=== PATIENT | male | born 1950 | race Caucasian/White ===

== ENCOUNTER 2020-06-07 22:10 | Inpatient (IN) | payer MEDICARE, OTHER ==
[~2020-06-07] VITALS: Ht 180.3 cm; Wt 119.3 kg
[2020-06-07 11:40] VITALS: BP 140/90
--- NOTE | 2020-06-07 23:40 | NUR ---
Patient arrived via EMS air flight accompanied by 2 EMS workers. Patient denies any pain or discomfort. Patient transferred to bed with assist of staff and placed on a continuous pulse ox and telemetry box.
[2020-06-08] VITALS (7 sets, daily range): BP systolic 121–138; BP diastolic 69–88
--- NOTE | 2020-06-08 02:31 | PCM.HP ---
HISTORY & PHYSICAL HISTORY & PHYSICAL DATE: June 08, 2020 Patient is admitted to the Covid floor as an inpatient ADMITTING DIAGNOSES: Worsening severe COVID-19 positive test (U07.1, COVID-19) with Acute Pneumonia (J12.89, Other viral pneumonia) (If respiratory failure or sepsis present, add as separate assessment) With acute hypoxic respiratory failure, rapid atrial fibrillation, elevated troponin, pulmonary edema CHIEF COMPLAINT: Worsening breathing HISTORY OF PRESENT ILLNESS: 69-year-old gentleman who was having worsening URI symptoms and breathing issues approximately 10 days ago. He went to his primary care physician's office and did not 5 days ago for his worsening breathing. Covid test was done at that time and it was reported as positive to PCR. He denies any fevers or headaches or change in smell or taste during this time. His primary complaint was worsening shortness of breath and chest heaviness and cough. He described the cough as a nonproductive cough. He denies any abdominal symptoms with no diarrhea and no dysuria as well. He does report some muscle aches however they are not severe. There have been no sick contacts around him. He denies any recent traveling. He reports going to see his cardio logist in [place] approximately a month ago and reports no issues from that visit. He denies any chest pain at this point. PAST MEDICAL HISTORY: Chronic atrial fibrillation, hypertension, DJD, sleep apnea, history of thyroid nodule PAST SURGICAL HISTORY: Bilateral hip replacement, right knee arthroscopy, right shoulder surgery, hemorrhoidectomy, colonoscopy ALLERGIES: No known drug allergies MEDICATIONS: I have reviewed his home medication list SOCIAL HISTORY: No tobacco, no alcohol, no drugs FAMILY HISTORY: Noncontributory for this admission PHYSICAL EXAMINATION: VITAL SIGNS: Temperature 99.4, pulse 104, respirations 20, blood pressure 136/87, he is on a nonrebreather mask currently with O2 sat of 94% HEENT: Oropharynx is clear, there is no significant nasal congestion, no maxillary sinus tenderness NECK: Supple, JVD was approximately 3 cm HEART: S1 and S2 audible, heart rate on my exam was around 90 and it was irregular, soft 3 out of 6 systolic murmur radiating to the axilla LUNGS: He had bilateral crackles with diminished breath sounds at the bases ABDOMEN: Abdomen is protuberant with good bowel sounds, soft, no rebound, no masses EXTREMITIES: No pitting edema noted, no cyanosis, good distal pulses noted LABORATORY DATA: Labs were done in the [place] ER: Sodium 131, potassium 3.9, chloride 96, bicarb 21, BUN 11, creatinine 0.84, total bilirubin 1.1, AST 69, albumin 3, lactic acid level 4.6, troponin 0 0.12, CK 144, CK-MB 5.7, BNP 311, WBC 10.6, hemoglobin 12.8, platelet count 260, PT 23, INR 2.43, PTT 31.7, D- dimer 3150, UA was clear, strep screen was negative, influenza AMB were negative, ABG on a nonrebreather with a pH 7.53/PCO2 24/PO2 64/bicarb 20 Chest x-ray was done at the ER with worsening bilateral peripheral groundglass infiltrates and no pleural effusion; prominent cardiac silhouette noted with increasing pulmonary vasculature bilaterally ASSESSMENT: We had this gentleman with coronavirus infection and pneumonia with early sepsis and acute hypoxic respiratory failure and also with acute uncompensated heart failure with rapid A. fib PLAN: Patient was in obvious respiratory distress when he came into the ER with significant pulmonary edema. He diuresed 5000 cc of urine after Lasix was given. He was given IV antibiotics with remdesivir and Decadron in the ER and admit. At this time giving him more fluids would be detrimental to his heart status since he did come in with rapid A. fib with pulmonary edema. I will go ahead and continue his coronavirus 19 infection medications and also start him on empiric IV antibiotics with oxygen. I will get an echo on him and follow his cardiac enzymes. We may need cardiology consultation. Clinically he reports to me that he is feeling a little bit better after the diuresis at this time and that his breathing is less labored. I will put him on a monitor and control his heart rate with his underlying chronic A. fib. CHILO RIVERA MD Jun 08, 2020 02:31
--- NOTE | 2020-06-08 08:04 | PCM.EKG ---
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
[2020-06-08] MEDS: DECADRON IV SCH (08:20)
[2020-06-08] MEDS ORDERED: FURO-81 PO (14:18)
[2020-06-08] MEDS ORDERED: METO50TA6 PO (14:18)
[2020-06-08] MEDS ORDERED: RIVA20TA PO (14:18)
[2020-06-08] MEDS ORDERED: LOSA100T14 PO (14:18)
--- NOTE | 2020-06-08 16:45 | DIREP ---
PROCEDURE:CT CHEST WITH CONTRAST COMPARISON:[facility], CR, XRAY CHEST 2 VWS, 06/03/2020, 03:[address] [facility], CR, XRAY CHEST 2 VWS, 06/07/2020, 06:07 PM. INDICATIONS:SOB, covid pneumonia, CHF TECHNIQUE:Helical CT images of the chest were obtained following the administration of IV contrast material. Axial, sagittal, and coronal images are provided. FINDINGS: LUNGS/PLEURA: Diffuse scattered ground-glass opacities throughout the right upper lobe and bilateral lower lobes with additional smaller foci of rounded ground-glass opacity at the periphery of the posterior left upper lobe and posterior lateral right middle lobe. No pleural effusion or pneumothorax. MEDIASTINUM/DARRYL: Multiple mildly prominent bilateral paratracheal and subcarinal lymph nodes, which are likely reactive to the above process. No bulky mediastinal or hilar adenopathy. CARDIAC: Heart size is within normal limits. Three-vessel coronary artery calcifications, most prominent in the LAD and RCA. No pericardial effusion. THORACIC AORTA: Scattered calcified plaque. No aneurysm. CHEST WALL: Unremarkable. No axillary adenopathy. LIMITED ABDOMEN: Vascular calcifications. Otherwise unremarkable. BONES: Right shoulder hemiarthroplasty. [id number] degenerative changes involving the thoracic spine. No acute abnormality or suspicious osseous lesion. OTHER: Negative. CONCLUSION: 1. Scattered ground-glass opacities throughout both lungs, most prominent in the right upper lobe and bilateral lower lobes. These imaging features are commonly reported in COVID-19 pneumonia. Other processes such as influenza pneumonia and organizing pneumonia (i.e. Drug toxicity and connective tissue disease) can have a similar appearance. 2. Three-vessel coronary artery calcifications, most prominent in the LAD and RCA. Heart size is normal. 3. Additional findings, as above. Dictated by: Tk Marie MD on 06/08/2020 at 04:38 PM
--- NOTE | 2020-06-08 17:21 | PRM.PN ---
Subjective Subjective Date: Jun 08, 2020 Time: 17:00 Subjective Pt reports feeling a bit better today; coughing is improved VTE VTE Risk Total Score: 3 VTE Risk Score VTE Risk: Score 0-1 = Low Risk (Aggressive mobilization; early ambulation; no VTE prophylaxis required) Score 2: Moderate Risk (Intermittent/Pneumatic Compression Device OR Lovenox/Heparin/Coumadin) Score 3-4: High Risk (Intermittent/Pneumatic Compression Device AND Lovenox/Heparin/Coumadin) Score > or =5: Highest Risk (Intermittent/Pneumatic Compression Device AND Lovenox/Heparin/Coumadin) Antico:Hep/LMWH/Coum/Xarelto: Yes Mechanical device ordered: No Review of Systems Constitutional: Fever, Malaise; No: Chills, Sweats, Weakness Eyes: No: Pain, Vision change, Conjunctivae inflammation ENT: No: Ear pain, Ear discharge, Nose pain Respiratory: Cough, Shortness of breath Cardiovascular: No: Chest Pain, Palpitations, Orthopnea, Paroxysmal Noc. Dyspnea Gastrointestinal: No: Nausea, Vomiting, Abdominal Pain, Diarrhea Genitourinary: No Dysuria, No Hematuria Musculoskeletal: No: neck pain, shoulder pain, arm pain Skin: No: Lesions, Jaundice, Bruising Neurological: No: Incoordination, Change in speech, Confusion, Seizures Allergies: Coded Allergies: No Known Allergies (Unverified , 06/08/20) Scheduled Furosemide (Lasix), 1 TAB PO QD, (Reported) Losartan Potassium (Losartan Potassium), 1 TAB PO DAILY, (Reported) Metoprolol Tartrate 50MG (Lopresser 50MG), 1 TAB PO DAILY24, (Reported) Rivaroxaban (Xarelto), 1 TAB PO HS, (Reported) Objective Vitals and I/O Vital Sign - Last 24 Hours 06/08/20 06/08/20 06/08/20 06/08/20 01:14 01:32 09:31 12:01 Temp 99.4 98.2 97.5 Pulse 104 100 92 Resp 22 28 24 B/P (MAP) 136/87 (103) 133/86 (102) 126/69 (88) O2 Delivery Nasal Cannula Nasal Canula Nasal Canula Venti Mask Non-Rebreather Non-Rebreather O2 Flow Rate 2.00 2.00 10.00 10.00 06/08/20 15:55 Temp 97.6 Pulse 114 Resp 26 B/P (MAP) 131/77 (95) O2 Delivery Venti Mask Non-Rebreather O2 Flow Rate 10.00 Intake and Output 06/08/20 07:00 Output Total 400 ml Balance -400 ml General: Alert, Oriented X3, Cooperative, No acute distress HEENT: Atraumatic, PERRLA, EOMI Neck: Supple, No thyromegaly Lungs: Other (crackles B with decreased BS at B bases) Heart: Normal S1, Normal S2, Other (slight tachy) Abdomen: Normal bowel sounds, Soft, No tenderness Extremities: No clubbing, No cyanosis Skin: No rashes Neuro: Normal speech Psych/Mental Status: Mental status NL, Mood NL All Results(Lab/Rad) Laboratory Tests Test 06/08/20 02:25 06/08/20 10:00 Total Creatine Kinase 161 U/L Creatine Kinase MB 1.5 ng/mL Troponin I < 0.02 ng/mL < 0.02 ng/mL Current Medications Medications (Trade) Dose Ordered Sig/Essence Route PRN Reason Start Time Stop Time Status Last Admin Dose Admin Benzonatate (Tessalon Perle) 100 mg TID PRN PO COUGH 06/08/20 02:30 07/08/20 02:29 Remdesivir 100 mg/ Sodium Chloride 120 ml @ 111.111 mls/hr Q24HRS IV 06/08/20 21:00 07/08/20 20:59 Ceftriaxone Sodium 2000 mg/ Sodium Chloride 100 ml @ 200 mls/hr Q24HRS IV 06/08/20 18:00 07/08/20 17:59 Azithromycin 500 mg/Sodium Chloride 250 ml @ 175 mls/hr Q24HRS IV 06/08/20 18:00 07/08/20 17:59 Course Sepsis Screening Results: Posi: NEGATIVE Sepsis Qualifier/Stage: NO DEFINITE RISK Vitals & review Data Vital Sign - Last 24 Hours 06/08/20 06/08/20 06/08/20 06/08/20 01:14 01:32 09:31 12:01 Temp 99.4 98.2 97.5 Pulse 104 100 92 Resp 22 28 24 B/P (MAP) 136/87 (103) 133/86 (102) 126/69 (88) O2 Delivery Nasal Cannula Nasal Canula Nasal Canula Venti Mask Non-Rebreather Non-Rebreather O2 Flow Rate 2.00 2.00 10.00 10.00 06/08/20 15:55 Temp 97.6 Pulse 114 Resp 26 B/P (MAP) 131/77 (95) O2 Delivery Venti Mask Non-Rebreather O2 Flow Rate 10.00 Intake and Output 06/08/20 07:00 Output Total 400 ml Balance -400 ml Laboratory Tests Test 06/08/20 02:25 06/08/20 10:00 Total Creatine Kinase 161 U/L Creatine Kinase MB 1.5 ng/mL Troponin I < 0.02 ng/mL < 0.02 ng/mL Current Medications Medications (Trade) Dose Ordered Sig/Essence PRN Reason Start Time Stop Time Status Last Admin Azithromycin 500 mg/Sodium Chloride 250 ml @ 175 mls/hr Q24HRS 06/08/20 18:00 07/08/20 17:59 Benzonatate (Tessalon Perle) 100 mg TID PRN COUGH 06/08/20 02:30 07/08/20 02:29 Ceftriaxone Sodium 2000 mg/ Sodium Chloride 100 ml @ 200 mls/hr Q24HRS 06/08/20 18:00 07/08/20 17:59 Remdesivir 100 mg/ Sodium Chloride 120 ml @ 111.111 mls/hr Q24HRS 06/08/20 21:00 07/08/20 20:59 LEVEL 1 SEPSIS INFECTION CRITE: ABX Therapy LEVEL 2-SIRS (LIST ALL THAT AP: RR>20/min Oxygen Flow Rate: 10.00 Assessment/Plan Assessment/Plan Assessment/Plan 69 yo male with COVID pneumonia, acute hypoxic resp failure on venti mask now, chronic afib with CHF - currency exchange specialist to eliquis and hold his coumadin - ECHO pending - on remdesivir, decadron, O2, plasma transfusion pending - rate control his afib CHILO RIVERA MD Jun 08, 2020 17:21
[2020-06-08] MEDS: ROCEPHIN 2,000 MG in NS 100ML 100 ML IV SCH (17:26)
[2020-06-08] MEDS ORDERED: LOPRESSOR PO SCH (17:30)
[2020-06-08] MEDS: ZITHROMAX 500 MG in NS 250ML 250 ML IV SCH (18:00)
[2020-06-08] MEDS: REMDESIVIR (EUA) 100 MG in NS 100ML 100 ML IV SCH (21:00)
[2020-06-08] MEDS: VITAMIN C PO SCH (21:00)
[2020-06-08] MEDS: ELIQUIS PO SCH (21:00)
[2020-06-08] MEDS: MELATONIN PO SCH (21:00)
[2020-06-08] MEDS: LIPITOR PO SCH (21:00)
[2020-06-08] MEDS: COMBIVENT RESPIMAT 20-100 MCG IH SCH (21:35)
[2020-06-08] MEDS ORDERED: NS 250ML 250 ML IV ONE (22:47)
[2020-06-09] VITALS (8 sets, daily range): BP systolic 112–158; BP diastolic 70–98
[2020-06-09] MEDS ORDERED: ZINC SULFATE ONE (07:34)
[2020-06-09] MEDS ORDERED: VITAMIN E ONE (07:34)
[2020-06-09] MEDS ORDERED: VITAMIN D ONE (07:35)
[2020-06-09] MEDS ORDERED: COZAAR ONE (07:49)
[2020-06-09] MEDS: COMBIVENT RESPIMAT 20-100 MCG IH SCH ×3 (09:00→21:15)
[2020-06-09] MEDS: DECADRON IV SCH (09:00)
[2020-06-09] MEDS: ELIQUIS PO SCH ×2 (09:07→21:00)
[2020-06-09] MEDS: VITAMIN D PO SCH (09:07)
[2020-06-09] MEDS: VITAMIN E PO SCH (09:07)
[2020-06-09] MEDS: COZAAR PO SCH (09:07)
[2020-06-09] MEDS: VITAMIN C PO SCH ×2 (09:07→21:00)
[2020-06-09] MEDS: ZINC SULFATE PO SCH (09:07)
--- NOTE | 2020-06-09 12:55 | PRM.PN ---
Subjective Subjective Date: Jun 09, 2020 Time: 12:35 Subjective Pt reports breathing ok; his coughing is his main complaint; eating good; denies any CP or abd pains VTE VTE Risk Total Score: 3 VTE Risk Score VTE Risk: Score 0-1 = Low Risk (Aggressive mobilization; early ambulation; no VTE prophylaxis required) Score 2: Moderate Risk (Intermittent/Pneumatic Compression Device OR Lovenox/Heparin/Coumadin) Score 3-4: High Risk (Intermittent/Pneumatic Compression Device AND Lovenox/Heparin/Coumadin) Score > or =5: Highest Risk (Intermittent/Pneumatic Compression Device AND Lovenox/Heparin/Coumadin) Antico:Hep/LMWH/Coum/Xarelto: Yes Mechanical device ordered: No Review of Systems Constitutional: No: Fever, Chills, Sweats, Weakness, Malaise Eyes: No: Pain, Vision change, Conjunctivae inflammation ENT: No: Ear pain, Ear discharge, Nose pain Respiratory: Cough, SOB with excertion; No: Shortness of breath Cardiovascular: No: Chest Pain, Palpitations, Orthopnea, Paroxysmal Noc. Dyspnea Gastrointestinal: No: Nausea, Vomiting, Abdominal Pain, Diarrhea Genitourinary: No Dysuria, No Hematuria Musculoskeletal: No: neck pain, shoulder pain, arm pain Skin: No: Lesions, Jaundice, Bruising Neurological: No: Incoordination, Change in speech, Confusion, Seizures Allergies: Coded Allergies: No Known Allergies (Unverified , 06/08/20) Scheduled Furosemide (Lasix), 1 TAB PO QD, (Reported) Losartan Potassium (Losartan Potassium), 1 TAB PO DAILY, (Reported) Metoprolol Tartrate 50MG (Lopresser 50MG), 1 TAB PO DAILY24, (Reported) Rivaroxaban (Xarelto), 1 TAB PO HS, (Reported) Objective Vitals and I/O Vital Sign - Last 24 Hours 06/08/20 06/08/20 06/08/20 06/08/20 15:55 19:06 19:16 21:34 Temp 97.6 97.5 Pulse 114 108 105 Resp 26 18 20 24 B/P (MAP) 131/77 (95) 138/88 (105) Pulse Ox 91 90 O2 Delivery Venti Mask Venturi Mask Venti Mask Non-Rebreather O2 Flow Rate 10.00 15.00 10.00 FiO2 50 06/08/20 06/08/20 06/08/20 06/08/20 21:36 21:38 23:19 23:36 Temp 97.6 97.9 Pulse 90 90 76 72 Resp B/P (MAP) 135/76 121/80 Pulse Ox 94 94 O2 Delivery Venturi Mask O2 Flow Rate 15.00 FiO2 50 06/09/20 06/09/20 06/09/20 06/09/20 00:43 00:51 01:35 05:13 Temp 97.9 97.9 97.6 Pulse 72 81 72 Resp B/P (MAP) 138/88 (105) 112/71 (85) 129/89 Pulse Ox 94 94 O2 Delivery Venti Mask Venti Mask Venturi Mask O2 Flow Rate 10.00 10.00 10.00 FiO2 92 06/09/20 06/09/20 06/09/20 06/09/20 05:18 08:15 08:20 08:25 Temp 97.7 Pulse 73 103 103 103 Resp 30 26 B/P (MAP) 158/98 (118) 151/97 (115) Pulse Ox 94 90 90 92 O2 Delivery Venti Mask Venturi Mask O2 Flow Rate 10.00 FiO2 50 06/09/20 09:07 B/P (MAP) 158/98 Intake and Output 06/09/20 07:00 Intake Total 1686 ml Output Total 1050 ml Balance 636 ml General: Alert, Oriented X3, Cooperative, No acute distress HEENT: Atraumatic, PERRLA, EOMI Neck: Supple, No thyromegaly Lungs: Other (decreased BS B at bases) Heart: Normal S1, Normal S2, Other (slight tachy) Abdomen: Normal bowel sounds, Soft, No tenderness Extremities: No clubbing, No cyanosis Skin: No rashes Neuro: Normal speech Psych/Mental Status: Mental status NL, Mood NL All Results(Lab/Rad) Laboratory Tests Test 06/08/20 02:25 06/08/20 10:00 Total Creatine Kinase 161 U/L Creatine Kinase MB 1.5 ng/mL Troponin I < 0.02 ng/mL < 0.02 ng/mL Current Medications Medications (Trade) Dose Ordered Sig/Essence Route PRN Reason Start Time Stop Time Status Last Admin Dose Admin Benzonatate (Tessalon Perle) 100 mg TID PRN PO COUGH 06/08/20 02:30 07/08/20 02:29 Remdesivir 100 mg/ Sodium Chloride 120 ml @ 111.111 mls/hr Q24HRS IV 06/08/20 21:00 07/08/20 20:59 Ceftriaxone Sodium 2000 mg/ Sodium Chloride 100 ml @ 200 mls/hr Q24HRS IV 06/08/20 18:00 07/08/20 17:59 Azithromycin 500 mg/Sodium Chloride 250 ml @ 175 mls/hr Q24HRS IV 06/08/20 18:00 07/08/20 17:59 Course Sepsis Screening Results: Posi: NEGATIVE Sepsis Qualifier/Stage: NO DEFINITE RISK Vitals & review Data Vital Sign - Last 24 Hours 06/08/20 06/08/20 06/08/20 06/08/20 01:14 01:32 09:31 12:01 Temp 99.4 98.2 97.5 Pulse 104 100 92 Resp 22 28 24 B/P (MAP) 136/87 (103) 133/86 (102) 126/69 (88) O2 Delivery Nasal Cannula Nasal Canula Nasal Canula Venti Mask Non-Rebreather Non-Rebreather O2 Flow Rate 2.00 2.00 10.00 10.00 06/08/20 15:55 Temp 97.6 Pulse 114 Resp 26 B/P (MAP) 131/77 (95) O2 Delivery Venti Mask Non-Rebreather O2 Flow Rate 10.00 l Intake and Output 06/08/20 07:00 Output Total 400 ml Balance -400 ml Laboratory Tests Test 06/08/20 02:25 06/08/20 10:00 Total Creatine Kinase 161 U/L Creatine Kinase MB 1.5 ng/mL Troponin I < 0.02 ng/mL < 0.02 ng/mL Current Medications Medications (Trade) Dose Ordered Sig/Essence PRN Reason Start Time Stop Time Status Last Admin Azithromycin 500 mg/Sodium Chloride 250 ml @ 175 mls/hr Q24HRS 06/08/20 18:00 07/08/20 17:59 Benzonatate (Tessalon Perle) 100 mg TID PRN COUGH 06/08/20 02:30 07/08/20 02:29 Ceftriaxone Sodium 2000 mg/ Sodium Chloride 100 ml @ 200 mls/hr Q24HRS 06/08/20 18:00 07/08/20 17:59 Remdesivir 100 mg/ Sodium Chloride 120 ml @ 111.111 mls/hr Q24HRS 06/08/20 21:00 07/08/20 20:59 LEVEL 1 SEPSIS INFECTION CRITE: ABX Therapy LEVEL 2-SIRS (LIST ALL THAT AP: RR>20/min O2 Sat by Pulse Oximetry: 92 Oxygen Flow Rate: 10.00 Assessment/Plan Assessment/Plan Assessment/Plan 69 yo male with COVID pneumonia, acute hypoxic resp failure on venti mask now, chronic afib with CHF - cont O2 as tolerated - ECHO pending - on remdesivir, decadron, O2, s/p plasma transfusion - rate control his afib - recheck labs tomorrow CHILO RIVERA MD Jun 09, 2020 12:55
[2020-06-09] MEDS: LOPRESSOR PO SCH ×2 (13:00→21:00)
[2020-06-09] MEDS: ROCEPHIN 2,000 MG in NS 100ML 100 ML IV SCH (17:22)
--- NOTE | 2020-06-09 17:43 | DIET.OP ---
Nutrition Asmt/Malnutrit 2-17 Actual Date of Review: Jun 09, 2020 Nutritional Screening: Nutritional Screening (reduced po intake prior to admission) Diagnosis: covid, CHF Pertinent Medical Hx/Surgical: a-fib, HTN Subjective Information: telehealth assessment Current Diet Order/Nutrition S: cardiac Pertinent Meds Current Medications Medications (Trade) Dose Ordered Sig/Essence PRN Reason Start Time Stop Time Status Last Admin Albuterol/ Ipratropium (Combivent Respimat 20-100 Mcg) 1 inh RTTID 06/08/20 21:00 07/08/20 20:59 06/09/20 15:00 Ascorbic Acid (Vitamin C) 500 mg BID 06/08/20 21:00 07/08/20 20:59 06/09/20 09:07 Atorvastatin Calcium (Lipitor) 40 mg HS 06/08/20 21:00 07/08/20 20:59 06/08/20 21:00 Azithromycin 500 mg/Sodium Chloride 250 ml @ 175 mls/hr Q24HRS 06/08/20 18:00 07/08/20 17:59 06/08/20 18:00 Benzonatate (Tessalon Perle) 100 mg TID PRN COUGH 06/08/20 02:30 07/08/20 02:29 Ceftriaxone Sodium 2000 mg/ Sodium Chloride 100 ml @ 200 mls/hr Q24HRS 06/08/20 18:00 07/08/20 17:59 06/09/20 17:22 Cholecalciferol (Vitamin D) 1,000 unit DAILY 06/09/20 09:00 07/09/20 08:59 06/09/20 09:07 Losartan Potassium (Cozaar) 100 mg DAILY 06/09/20 09:00 07/09/20 08:59 06/09/20 09:07 Melatonin (Melatonin) 9 mg HS 06/08/20 21:00 07/08/20 20:59 06/08/20 21:00 Metoprolol Tartrate (Lopressor) 50 mg BID 06/09/20 13:00 07/08/20 17:29 06/09/20 13:00 Remdesivir 100 mg/ Sodium Chloride 120 ml @ 111.111 mls/hr Q24HRS 06/08/20 21:00 07/08/20 20:59 06/08/20 21:00 Vitamin E (Vitamin E) 400 unit DAILY 06/09/20 09:00 07/09/20 08:59 06/09/20 09:07 Zinc Sulfate (Zinc Sulfate) 220 mg DAILY 06/09/20 09:00 07/09/20 08:59 06/09/20 09:07 Pertinent Labs Laboratory Tests Test 06/08/20 02:25 06/08/20 10:00 Total Creatine Kinase 161 U/L Creatine Kinase MB 1.5 ng/mL Troponin I < 0.02 ng/mL < 0.02 ng/mL Height (Feet): 5 Height (Inches): 11 Current Weight: 263 Recent Weight Change: No Weight Status: Obese Food Allergies: No Cultural/Ethnic/Amish Eduarda: none Usual Diet at Home: regular Current %PO: Good(75-100%) Calories/Kcals/K-25 kcal/kg of IBW Kcals Calculated: 5650-2206 kcal Protein: Adj WT of IBW Protein g/k-1.2 g/kg of IBW Protein Calculated: 78-86g Fluid: ml: 6884-4300 ml (1ml/kcal) Nutritional Problem: Nutr. Problems Present Problems: obesity Etiology: excessive caloric intake Signs/Symptoms: BMI of 26.7 kg/m2 RD Comments: RD to provide nutrition education when appropriate. Recommend outpatient nutrition counseling for wt loss. Discharge on cardiac diet. Expected Outcomes 75% po intake of most meals to meet estimated nutrition needs the next 5 days. Malnutrtion/Nutrition Risk Edu: No Notificiation Needed?: No Conchis Enciso Jun 09, 2020 17:43
[2020-06-09] MEDS: ZITHROMAX 500 MG in NS 250ML 250 ML IV SCH (18:00)
[2020-06-09] MEDS: LIPITOR PO SCH (21:00)
[2020-06-09] MEDS: REMDESIVIR (EUA) 100 MG in NS 100ML 100 ML IV SCH (21:00)
[2020-06-09] MEDS: MELATONIN PO SCH (21:00)
[2020-06-10 00:17] VITALS: BP 127/82
[2020-06-10 04:31] VITALS: BP 123/72
[2020-06-10 06:38] LABS: BASOPHIL % 0.1 % (0.0-0.2); LYMPHOCYTES # 0.56 10^3/uL1 (1.0-4.8); LYMPHOCYTES % 5.3 % (24.0-44.0); MEAN CORP HGB 29.1 pg (26-34); MONOCYTES # 0.5 10^3/uL (0.3-0.8); MONOCYTES % 4.7 % (5.0-12.0); NEUTROPHIL # 9.5 10^3/uL (1.8-7.7); NEUTROPHILS % 89.5 % (41.0-85.0); PLATELET COUNT 184 10^3/uL (150-400); RED CELL DISTRIBUTION WIDTH 14.2 % (11.5-14.5)
[2020-06-10 07:26] LABS: CALCIUM 8.2 mg/dL (8.4-10.5); CARBON DIOXIDE 21.3 mmol/L (20.0-32)
[2020-06-10 08:04] LABS: LYMPHOCYTE 2 % (25-36); MONOCYTE 5 % (3-9); SEGMENTED NEUTROPHILS 93 % (31-76)
[2020-06-10] MEDS: VITAMIN E PO SCH (08:53)
[2020-06-10] MEDS: LOPRESSOR PO SCH ×2 (08:53→21:00)
[2020-06-10] MEDS: VITAMIN C PO SCH ×2 (08:54→21:00)
[2020-06-10] MEDS: ELIQUIS PO SCH ×2 (08:54→21:00)
[2020-06-10] MEDS: VITAMIN D PO SCH (08:54)
[2020-06-10] MEDS: COZAAR PO SCH (08:54)
[2020-06-10] MEDS: ZINC SULFATE PO SCH (08:54)
[2020-06-10] MEDS: DECADRON IV SCH (08:55)
[2020-06-10] MEDS: COMBIVENT RESPIMAT 20-100 MCG IH SCH ×3 (09:00→20:50)
[2020-06-10] MEDS: TESSALON PERLE PO PRN (09:08)
[2020-06-10 09:56] VITALS: BP 142/73
[2020-06-10] MEDS ORDERED: LANOLIN HYDROUS TP PRN (11:30)
[2020-06-10 12:15] VITALS: BP 134/75
[2020-06-10 16:30] VITALS: BP 136/84
[2020-06-10] MEDS: ZITHROMAX 500 MG in NS 250ML 250 ML IV SCH (18:00)
[2020-06-10] MEDS: ROCEPHIN 2,000 MG in NS 100ML 100 ML IV SCH (18:00)
[2020-06-10 20:30] VITALS: BP 141/82
[2020-06-10] MEDS: MELATONIN PO SCH (21:00)
[2020-06-10] MEDS: REMDESIVIR (EUA) 100 MG in NS 100ML 100 ML IV SCH (21:00)
[2020-06-10] MEDS: LIPITOR PO SCH (21:00)
--- NOTE | 2020-06-10 21:27 | ECHO ---
DATE OF SERVICE: 06/08/2020 HISTORY: A 69-year-old male with underlying atrial fibrillation and heart murmur and COVID positive status, chronic atrial fibrillation on 06/08/2020. PRIMARY PHYSICIAN: Dr. Boyle. Assess for LV function. FINDINGS: Mitral valve shows loss of A-wave due to atrial fibrillation with exaggerated E descent consistent with probably grade 2 diastolic dysfunction with normal mitral valve opening and trivial mitral regurgitation. Aorta is mildly sclerotic, normal aortic valve opening of 4.34 cm. Limited echo. Tricuspid valve seems to show normal function. Right ventricle is enlarged in 4-chamber view to 4.1 cm and right atrium is enlarged in 4-chamber view to 5.4 cm. Left atrium is enlarged to 4.8 cm. Left ventricle is poorly imaged, but it is 5.43 cm in end-diastolic dimension, 4.39 cm in systolic dimension with left ventricular hypertrophy, posterior wall thicker than the septum and there is suggestion of mild global hypokinesis with an ejection fraction somewhere around 40-45% and IVC is dilated. Hence, right-sided chamber enlargements with significant biatrial enlargement with normal left ventricular size, early left ventricular hypertrophy with global hypokinesis, 40-45% ejection fraction with mild mitral regurgitation. No thrombus in any other cardiac chambers. Laxmichand MD Dong DR: MADELIN/magdy JOB# [id number]
[2020-06-11 00:35] VITALS: BP 121/78
[2020-06-11 05:53] VITALS: BP 137/81
--- NOTE | 2020-06-11 05:55 | NUR ---
respiratory and patricia rn notified pt 02 sat 85%
[2020-06-11] MEDS: VITAMIN E PO SCH (08:30)
[2020-06-11] MEDS: VITAMIN D PO SCH (08:30)
[2020-06-11] MEDS: LOPRESSOR PO SCH ×2 (08:31→21:00)
[2020-06-11] MEDS: TESSALON PERLE PO PRN (08:31)
[2020-06-11] MEDS: COZAAR PO SCH (08:31)
[2020-06-11] MEDS: DECADRON IV SCH (08:32)
[2020-06-11] MEDS: COMBIVENT RESPIMAT 20-100 MCG IH SCH ×4 (08:32→21:00)
[2020-06-11] MEDS: VITAMIN C PO SCH ×2 (08:32→21:00)
[2020-06-11] MEDS: ZINC SULFATE PO SCH (08:33)
[2020-06-11 08:46] VITALS: BP 150/78
[2020-06-11] MEDS: ELIQUIS PO SCH ×2 (09:00→21:00)
[2020-06-11 12:05] VITALS: BP 129/82
--- NOTE | 2020-06-11 15:22 | NUR ---
DISCHARGE PLAN CASE MANAGEMENT VISITED WITH , MIAH, CONCERNING DISCHARGE PLAN AND NEEDS. LIVES AT HOME WITH . WAS INDEPENDENT OF ADLS. [facility], BUT [facility] DOES NOT SERVICE THEIR AREA FOR HOME OXYGEN. CM OBTAINED ORDER FOR HOME OXYGEN AND FAXED TO [facility] AND PORTABLE WILL BE DELIVERED TO THIS FACILITY AND CONCENTRATOR SET UP AT HOME IN [place]. THEY ALSO WOULD LIKE TO HAVE HOME HEALTH SERVICES. CM PHONED [place] WITH [facility] @ [phone] AND ARRANGED FOR HOME HEALTH AND ALSO FAXED CLINICAL INFORMATION WITH POSSIBLE DISCHARGE FOR TOMORROW. DISCHARGE PLAN IS TO DC HOME WITH AND CONTINUE WITH [facility]. CM LEFT CONTACT INFO WITH AND WILL CONTINUE TO FOLLOW FOR DISCHARGE NEEDS.
[2020-06-11 16:07] VITALS: BP 140/83
[2020-06-11] MEDS: ZITHROMAX 500 MG in NS 250ML 250 ML IV SCH (18:00)
[2020-06-11] MEDS: ROCEPHIN 2,000 MG in NS 100ML 100 ML IV SCH (18:00)
[2020-06-11 20:00] VITALS: BP 126/79
[2020-06-11] MEDS: REMDESIVIR (EUA) 100 MG in NS 100ML 100 ML IV SCH (21:00)
[2020-06-11] MEDS: MELATONIN PO SCH (21:00)
[2020-06-11] MEDS: LIPITOR PO SCH (21:00)
[2020-06-11] MEDS ORDERED: OCEAN NS PRN (23:00)
[2020-06-12] VITALS: BP 111/74
[2020-06-12 04:00] VITALS: BP 117/79
[2020-06-12 08:33] VITALS: BP 113/77
[2020-06-12] MEDS: VITAMIN E PO SCH (08:44)
[2020-06-12] MEDS: ZINC SULFATE PO SCH (08:45)
[2020-06-12] MEDS: COZAAR PO SCH (08:45)
[2020-06-12] MEDS: LOPRESSOR PO SCH ×2 (08:45→21:03)
[2020-06-12] MEDS: ELIQUIS PO SCH ×2 (08:46→21:03)
[2020-06-12] MEDS: VITAMIN D PO SCH (08:46)
[2020-06-12] MEDS: DECADRON IV SCH (08:46)
[2020-06-12] MEDS: VITAMIN C PO SCH ×2 (09:00→21:04)
[2020-06-12] MEDS: COMBIVENT RESPIMAT 20-100 MCG IH SCH ×3 (10:05→21:00)
[2020-06-12 12:29] VITALS: BP 111/74
[2020-06-12 16:49] VITALS: BP 135/80
--- NOTE | 2020-06-12 17:08 | PRM.PN ---
Subjective Subjective Date: Jun 10, 2020 Time: 12:45 Subjective Pt still needing high flow O2 with a ventimask; he does report breathing better; still feeling very weak VTE VTE Risk Total Score: 3 VTE Risk Score VTE Risk: Score 0-1 = Low Risk (Aggressive mobilization; early ambulation; no VTE prophylaxis required) Score 2: Moderate Risk (Intermittent/Pneumatic Compression Device OR Lovenox/Heparin/Coumadin) Score 3-4: High Risk (Intermittent/Pneumatic Compression Device AND Lovenox/Heparin/Coumadin) Score > or =5: Highest Risk (Intermittent/Pneumatic Compression Device AND Lovenox/Heparin/Coumadin) Antico:Hep/LMWH/Coum/Xarelto: Yes Mechanical device ordered: No Review of Systems Constitutional: Weakness, Malaise; No: Fever, Chills, Sweats Eyes: No: Pain, Vision change, Conjunctivae inflammation ENT: No: Ear pain, Ear discharge, Nose pain Respiratory: Cough, SOB with excertion; No: Shortness of breath Cardiovascular: No: Chest Pain, Palpitations, Orthopnea, Paroxysmal Noc. Dyspnea Gastrointestinal: No: Nausea, Vomiting, Abdominal Pain, Diarrhea Genitourinary: No Dysuria, No Hematuria Musculoskeletal: No: neck pain, shoulder pain, arm pain Skin: No: Lesions, Jaundice, Bruising Neurological: No: Incoordination, Change in speech, Confusion, Seizures Allergies: Coded Allergies: No Known Allergies (Unverified , 06/08/20) Scheduled Furosemide (Lasix), 1 TAB PO QD, (Reported) Losartan Potassium (Losartan Potassium), 1 TAB PO DAILY, (Reported) Metoprolol Tartrate 50MG (Lopresser 50MG), 1 TAB PO DAILY24, (Reported) Rivaroxaban (Xarelto), 1 TAB PO HS, (Reported) Objective Vitals and I/O Vital Sign - Last 24 Hours 06/11/20 06/11/20 06/11/20 06/12/20 20:00 20:50 20:50 00:00 Temp 98.1 97.9 Pulse 101 100 100 87 Resp 20 B/P (MAP) 126/79 (95) 111/74 (86) Pulse Ox 90 90 90 87 O2 Delivery Nasal Canula Nasal Cannula Nasal Canula O2 Flow Rate 5.50 5.00 FiO2 40 11/2506/12/20 06/12/20 06/12/20 01:09 01:20 04:00 08:33 Temp 98.0 97.4 Pulse 103 88 Resp B/P (MAP) 117/79 (92) 113/77 (89) Pulse Ox 99 90 O2 Delivery Nasal Cannula Nasal Cannula Nasal Canula O2 Flow Rate 2.00 5.00 FiO2 93 06/12/20 06/12/20 06/12/20 06/12/20 08:45 11:54 11:54 12:29 Temp 97.5 Pulse 88 88 59 Resp 22 B/P (MAP) 113/77 111/74 (86) Pulse Ox 90 90 95 O2 Flow Rate 4.00 06/12/20 06/12/20 06/12/20 15:00 15:00 16:49 Temp 97.8 Pulse 62 94 Resp B/P (MAP) 135/80 (98) Pulse Ox 95 95 93 Intake and Output 06/12/20 07:00 Intake Total 840 ml Output Total 500 ml Balance 340 ml General: Alert, Oriented X3, Cooperative, No acute distress HEENT: Atraumatic, PERRLA, EOMI Neck: Supple, No thyromegaly Lungs: Other (decreased BS B at bases with crackles B) Heart: Normal S1, Normal S2, Other (slight tachy) Abdomen: Normal bowel sounds, Soft, No tenderness Extremities: No clubbing, No cyanosis Skin: No rashes Neuro: Normal speech Psych/Mental Status: Mental status NL, Mood NL All Results(Lab/Rad) Laboratory Tests Test 06/08/20 02:25 06/08/20 10:00 Total Creatine Kinase 161 U/L Creatine Kinase MB 1.5 ng/mL Troponin I < 0.02 ng/mL < 0.02 ng/mL Current Medications Medications (Trade) Dose Ordered Sig/Essence Route PRN Reason Start Time Stop Time Status Last Admin Dose Admin Benzonatate (Tessalon Perle) 100 mg TID PRN PO COUGH 06/08/20 02:30 07/08/20 02:29 Remdesivir 100 mg/ Sodium Chloride 120 ml @ 111.111 mls/hr Q24HRS IV 06/08/20 21:00 07/08/20 20:59 Ceftriaxone Sodium 2000 mg/ Sodium Chloride 100 ml @ 200 mls/hr Q24HRS IV 06/08/20 18:00 07/08/20 17:59 Azithromycin 500 mg/Sodium Chloride 250 ml @ 175 mls/hr Q24HRS IV 06/08/20 18:00 07/08/20 17:59 Course Sepsis Screening Results: Posi: NEGATIVE Sepsis Qualifier/Stage: NO DEFINITE RISK Vitals & review Data Vital Sign - Last 24 Hours 06/08/20 06/08/20 06/08/20 06/08/20 01:14 01:32 09:31 12:01 Temp 99.4 98.2 97.5 Pulse 104 100 92 Resp 22 28 24 B/P (MAP) 136/87 (103) 133/86 (102) 126/69 (88) O2 Delivery Nasal Cannula Nasal Canula Nasal Canula Venti Mask Non-Rebreather Non-Rebreather O2 Flow Rate 2.00 2.00 10.00 10.00 06/08/20 15:55 Temp 97.6 Pulse 114 Resp 26 B/P (MAP) 131/77 (95) O2 Delivery Venti Mask Non-Rebreather O2 Flow Rate 10.00 Intake and Output 06/08/20 07:00 Output Total 400 ml Balance -400 ml Laboratory Tests Test 06/08/20 02:25 06/08/20 10:00 Total Creatine Kinase 161 U/L Creatine Kinase MB 1.5 ng/mL Troponin I < 0.02 ng/mL < 0.02 ng/mL Current Medications Medications (Trade) Dose Ordered Sig/Essence PRN Reason Start Time Stop Time Status Last Admin Azithromycin 500 mg/Sodium Chloride 250 ml @ 175 mls/hr Q24HRS 06/08/20 18:00 07/08/20 17:59 Benzonatate (Tessalon Perle) 100 mg TID PRN COUGH 06/08/20 02:30 07/08/20 02:29 Ceftriaxone Sodium 2000 mg/ Sodium Chloride 100 ml @ 200 mls/hr Q24HRS 06/08/20 18:00 07/08/20 17:59 Remdesivir 100 mg/ Sodium Chloride 120 ml @ 111.111 mls/hr Q24HRS 06/08/20 21:00 07/08/20 20:59 LEVEL 1 SEPSIS INFECTION CRITE: ABX Therapy LEVEL 2-SIRS (LIST ALL THAT AP: RR>20/min O2 Sat by Pulse Oximetry: 93 Oxygen Flow Rate: 4.00 Assessment/Plan Assessment/Plan Assessment/Plan 69 yo male with COVID pneumonia, chronic afib with RVR, CAD, weakness - rate control 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
--- NOTE | 2020-06-12 17:11 | PRM.PN ---
Subjective Subjective Date: Jun 11, 2020 Time: 11:30 Subjective Pt feeling better; wants to get up and walk around; resp is weaning his O2 VTE VTE Risk Total Score: 3 VTE Risk Score VTE Risk: Score 0-1 = Low Risk (Aggressive mobilization; early ambulation; no VTE prophylaxis required) Score 2: Moderate Risk (Intermittent/Pneumatic Compression Device OR Lovenox/Heparin/Coumadin) Score 3-4: High Risk (Intermittent/Pneumatic Compression Device AND Lovenox/Heparin/Coumadin) Score > or =5: Highest Risk (Intermittent/Pneumatic Compression Device AND Lovenox/Heparin/Coumadin) Antico:Hep/LMWH/Coum/Xarelto: Yes Mechanical device ordered: No Review of Systems Constitutional: Weakness, Malaise; No: Fever, Chills, Sweats Eyes: No: Pain, Vision change, Conjunctivae inflammation ENT: No: Ear pain, Ear discharge, Nose pain Respiratory: Cough, SOB with excertion; No: Shortness of breath Cardiovascular: No: Chest Pain, Palpitations, Orthopnea, Paroxysmal Noc. Dyspnea Gastrointestinal: No: Nausea, Vomiting, Abdominal Pain, Diarrhea Genitourinary: No Dysuria, No Hematuria Musculoskeletal: No: neck pain, shoulder pain, arm pain Skin: No: Lesions, Jaundice, Bruising Neurological: No: Incoordination, Change in speech, Confusion, Seizures Allergies: Coded Allergies: No Known Allergies (Unverified , 06/08/20) Scheduled Furosemide (Lasix), 1 TAB PO QD, (Reported) Losartan Potassium (Losartan Potassium), 1 TAB PO DAILY, (Reported) Metoprolol Tartrate 50MG (Lopresser 50MG), 1 TAB PO DAILY24, (Reported) Rivaroxaban (Xarelto), 1 TAB PO HS, (Reported) Objective Vitals and I/O Vital Sign - Last 24 Hours 06/11/20 06/11/20 06/11/20 06/12/20 20:00 20:50 20:50 00:00 Temp 98.1 97.9 Pulse 101 100 100 87 Resp B/P (MAP) 126/79 (95) 111/74 (86) Pulse Ox 90 90 90 87 O2 Delivery Nasal Canula Nasal Cannula Nasal Canula O2 Flow Rate 5.50 5.00 FiO2 40 06/12/20 06/12/20 06/12/2025/20 01:09 01:20 04:00 08:33 Temp 98.0 97.4 Pulse 103 88 Resp B/P (MAP) 117/79 (92) 113/77 (89) Pulse Ox 99 90 O2 Delivery Nasal Cannula Nasal Cannula Nasal Canula O2 Flow Rate 2.00 5.00 FiO2 93 06/12/20 06/12/20 06/12/20 06/12/20 08:45 11:54 11:54 12:29 Temp 97.5 Pulse 88 88 59 Resp 22 B/P (MAP) 113/77 111/74 (86) Pulse Ox 90 90 95 O2 Flow Rate 4.00 06/12/20 06/12/20 06/12/20 15:00 15:00 16:49 Temp 97.8 Pulse 62 94 Resp B/P (MAP) 135/80 (98) Pulse Ox 95 95 93 l Intake and Output 06/12/20 07:00 Intake Total 840 ml Output Total 500 ml Balance 340 ml General: Alert, Oriented X3, Cooperative, No acute distress HEENT: Atraumatic, PERRLA, EOMI Neck: Supple, No thyromegaly Lungs: Other (improved aeration B) Heart: Normal S1, Normal S2, Other (slight tachy) Abdomen: Normal bowel sounds, Soft, No tenderness Extremities: No clubbing, No cyanosis Skin: No rashes Neuro: Normal speech Psych/Mental Status: Mental status NL, Mood NL All Results(Lab/Rad) Laboratory Tests Test 06/08/20 02:25 06/08/20 10:00 Total Creatine Kinase 161 U/L Creatine Kinase MB 1.5 ng/mL Troponin I < 0.02 ng/mL < 0.02 ng/mL Current Medications Medications (Trade) Dose Ordered Sig/Essence Route PRN Reason Start Time Stop Time Status Last Admin Dose Admin Benzonatate (Tessalon Perle) 100 mg TID PRN PO COUGH 06/08/20 02:30 07/08/20 02:29 Remdesivir 100 mg/ Sodium Chloride 120 ml @ 111.111 mls/hr Q24HRS IV 06/08/20 21:00 07/08/20 20:59 Ceftriaxone Sodium 2000 mg/ Sodium Chloride 100 ml @ 200 mls/hr Q24HRS IV 06/08/20 18:00 07/08/20 17:59 Azithromycin 500 mg/Sodium Chloride 250 ml @ 175 mls/hr Q24HRS IV 06/08/20 18:00 07/08/20 17:59 Course Sepsis Screening Results: Posi: NEGATIVE Sepsis Qualifier/Stage: NO DEFINITE RISK Vitals & review Data Vital Sign - Last 24 Hours 06/08/20 06/08/20 06/08/20 06/08/20 01:14 01:32 09:31 12:01 Temp 99.4 98.2 97.5 Pulse 104 100 92 Resp 22 28 24 B/P (MAP) 136/87 (103) 133/86 (102) 126/69 (88) O2 Delivery Nasal Cannula Nasal Canula Nasal Canula Venti Mask Non-Rebreather Non-Rebreather O2 Flow Rate 2.00 2.00 10.00 10.00 06/08/20 15:55 Temp 97.6 Pulse 114 Resp 26 B/P (MAP) 131/77 (95) O2 Delivery Venti Mask Non-Rebreather O2 Flow Rate 10.00 Intake and Output 06/08/20 07:00 Output Total 400 ml Balance -400 ml Laboratory Tests Test 06/08/20 02:25 06/08/20 10:00 Total Creatine Kinase 161 U/L Creatine Kinase MB 1.5 ng/mL Troponin I < 0.02 ng/mL < 0.02 ng/mL Current Medications Medications (Trade) Dose Ordered Sig/Essence PRN Reason Start Time Stop Time Status Last Admin Azithromycin 500 mg/Sodium Chloride 250 ml @ 175 mls/hr Q24HRS 06/08/20 18:00 07/08/20 17:59 Benzonatate (Tessalon Perle) 100 mg TID PRN COUGH 06/08/20 02:30 07/08/20 02:29 Ceftriaxone Sodium 2000 mg/ Sodium Chloride 100 ml @ 200 mls/hr Q24HRS 06/08/20 18:00 07/08/20 17:59 Remdesivir 100 mg/ Sodium Chloride 120 ml @ 111.111 mls/hr Q24HRS 06/08/20 21:00 07/08/20 20:59 LEVEL 1 SEPSIS INFECTION CRITE: ABX Therapy LEVEL 2-SIRS (LIST ALL THAT AP: RR>20/min O2 Sat by Pulse Oximetry: 93 Oxygen Flow Rate: 4.00 Assessment/Plan Assessment/Plan Assessment/Plan 69 yo male with COVID pneumonia, chronic afib with RVR, CAD, weakness - rate control his afib - on eliquis for DVT prophylaxis and stroke prophylaxis - wean O2 as tolerated; now on NC at 5 l/min - cont COVID meds and IV abx - PT for mobility CHILO RIVERA MD Jun 12, 2020 17:11
--- NOTE | 2020-06-12 17:13 | PRM.PN ---
Subjective Subjective Date: Jun 12, 2020 Time: 10:00 Subjective Pt is breathing ok; eating more; feels weak VTE VTE Risk Total Score: 3 VTE Risk Score VTE Risk: Score 0-1 = Low Risk (Aggressive mobilization; early ambulation; no VTE prophylaxis required) Score 2: Moderate Risk (Intermittent/Pneumatic Compression Device OR Lovenox/Heparin/Coumadin) Score 3-4: High Risk (Intermittent/Pneumatic Compression Device AND Lovenox/Heparin/Coumadin) Score > or =5: Highest Risk (Intermittent/Pneumatic Compression Device AND Lovenox/Heparin/Coumadin) Antico:Hep/LMWH/Coum/Xarelto: Yes Mechanical device ordered: No Review of Systems Constitutional: Weakness; No: Fever, Chills, Sweats Eyes: No: Pain, Vision change, Conjunctivae inflammation ENT: No: Ear pain, Ear discharge, Nose pain Respiratory: Cough; No: Shortness of breath Cardiovascular: No: Chest Pain, Palpitations, Orthopnea, Paroxysmal Noc. Dyspnea Gastrointestinal: No: Nausea, Vomiting, Abdominal Pain, Diarrhea Genitourinary: No Dysuria, No Hematuria Musculoskeletal: No: neck pain, shoulder pain, arm pain Skin: No: Lesions, Jaundice, Bruising Neurological: No: Incoordination, Change in speech, Confusion, Seizures Allergies: Coded Allergies: No Known Allergies (Unverified , 06/08/20) Scheduled Furosemide (Lasix), 1 TAB PO QD, (Reported) Losartan Potassium (Losartan Potassium), 1 TAB PO DAILY, (Reported) Metoprolol Tartrate 50MG (Lopresser 50MG), 1 TAB PO DAILY24, (Reported) Rivaroxaban (Xarelto), 1 TAB PO HS, (Reported) Objective Vitals and I/O Vital Sign - Last 24 Hours 06/11/20 06/11/20 06/11/20 06/12/20 20:00 20:50 20:50 00:00 Temp 98.1 97.9 Pulse 101 100 100 87 Resp 20 B/P (MAP) 126/79 (95) 111/74 (86) Pulse Ox 90 90 90 87 O2 Delivery Nasal Canula Nasal Cannula Nasal Canula O2 Flow Rate 5.50 5.00 FiO2 40 06/12/20 06/12/20 06/12/20 06/12/20 01:09 01:20 04:00 08:33 Temp 98.0 97.4 Pulse 103 88 Resp 20 B/P (MAP) 117/79 (92) 113/77 (89) Pulse Ox 99 90 O2 Delivery Nasal Cannula Nasal Cannula Nasal Canula O2 Flow Rate 2.00 5.00 FiO2 93 06/12/20 06/12/20 06/12/20 06/12/20 08:45 11:54 11:54 12:29 Temp 97.5 Pulse 88 88 59 Resp 22 B/P (MAP) 113/77 111/74 (86) Pulse Ox 90 90 95 O2 Flow Rate 4.00 06/12/20 06/12/20 06/12/20 15:00 15:00 16:49 Temp 97.8 Pulse 62 94 Resp B/P (MAP) 135/80 (98) Pulse Ox 95 95 93 Intake and Output 06/12/20 07:00 Intake Total 840 ml Output Total 500 ml Balance 340 ml General: Alert, Oriented X3, Cooperative, No acute distress HEENT: Atraumatic, PERRLA, EOMI Neck: Supple, No thyromegaly Lungs: Other (improved aeration B) Heart: Normal S1, Normal S2, Other (irregular rhythm) Abdomen: Normal bowel sounds, Soft, No tenderness Extremities: No clubbing, No cyanosis Skin: No rashes Neuro: Normal speech Psych/Mental Status: Mental status NL, Mood NL All Results(Lab/Rad) Laboratory Tests Test 06/08/20 02:25 06/08/20 10:00 Total Creatine Kinase 161 U/L Creatine Kinase MB 1.5 ng/mL Troponin I < 0.02 ng/mL < 0.02 ng/mL Current Medications Medications (Trade) Dose Ordered Sig/Essence Route PRN Reason Start Time Stop Time Status Last Admin Dose Admin Benzonatate (Tessalon Perle) 100 mg TID PRN PO COUGH 06/08/20 02:30 07/08/20 02:29 Remdesivir 100 mg/ Sodium Chloride 120 ml @ 111.111 mls/hr Q24HRS IV 06/08/20 21:00 07/08/20 20:59 Ceftriaxone Sodium 2000 mg/ Sodium Chloride 100 ml @ 200 mls/hr Q24HRS IV 06/08/20 18:00 07/08/20 17:59 Azithromycin 500 mg/Sodium Chloride 250 ml @ 175 mls/hr Q24HRS IV 06/08/20 18:00 07/08/20 17:59 Course Sepsis Screening Results: Posi: NEGATIVE Sepsis Qualifier/Stage: NO DEFINITE RISK Vitals & review Data Vital Sign - Last 24 Hours 06/08/20 06/08/20 06/08/20 06/08/20 01:14 01:32 09:31 12:01 Temp 99.4 98.2 97.5 Pulse 104 100 92 Resp 22 28 24 B/P (MAP) 136/87 (103) 133/86 (102) 126/69 (88) O2 Delivery Nasal Cannula Nasal Canula Nasal Canula Venti Mask Non-Rebreather Non-Rebreather O2 Flow Rate 2.00 2.00 10.00 10.00 06/08/20 15:55 Temp 97.6 Pulse 114 Resp 26 B/P (MAP) 131/77 (95) O2 Delivery Venti Mask Non-Rebreather O2 Flow Rate 10.00 Intake and Output 06/08/20 07:00 Output Total 400 ml Balance -400 ml Laboratory Tests Test 06/08/20 02:25 06/08/20 10:00 Total Creatine Kinase 161 U/L Creatine Kinase MB 1.5 ng/mL Troponin I < 0.02 ng/mL < 0.02 ng/mL Current Medications Medications (Trade) Dose Ordered Sig/Essence PRN Reason Start Time Stop Time Status Last Admin Azithromycin 500 mg/Sodium Chloride 250 ml @ 175 mls/hr Q24HRS 06/08/20 18:00 07/08/20 17:59 Benzonatate (Tessalon Perle) 100 mg TID PRN COUGH 06/08/20 02:30 07/08/20 02:29 Ceftriaxone Sodium 2000 mg/ Sodium Chloride 100 ml @ 200 mls/hr Q24HRS 06/08/20 18:00 07/08/20 17:59 Remdesivir 100 mg/ Sodium Chloride 120 ml @ 111.111 mls/hr Q24HRS 06/08/20 21:00 07/08/20 20:59 LEVEL 1 SEPSIS INFECTION CRITE: ABX Therapy LEVEL 2-SIRS (LIST ALL THAT AP: RR>20/min O2 Sat by Pulse Oximetry: 93 Oxygen Flow Rate: 4.00 Assessment/Plan Assessment/Plan Assessment/Plan 69 yo male with COVID pneumonia, resolving hypoxic resp failure, afib, CAD, weakness - cont meds - wean O2 - ambulate CHILO RIVERA MD Jun 12, 2020 17:13
[2020-06-12] MEDS: ZITHROMAX 500 MG in NS 250ML 250 ML IV SCH (18:00)
[2020-06-12] MEDS: ROCEPHIN 2,000 MG in NS 100ML 100 ML IV SCH (18:00)
[2020-06-12 19:34] VITALS: BP 124/67
[2020-06-12] MEDS: LIPITOR PO SCH (21:02)
[2020-06-12] MEDS: MELATONIN PO SCH (21:02)
[2020-06-12] MEDS: REMDESIVIR (EUA) 100 MG in NS 100ML 100 ML IV SCH (21:04)
[2020-06-13 01:06] VITALS: BP 118/80
[2020-06-13 04:23] VITALS: BP 122/84
[2020-06-13 05:38] LABS: BASOPHIL % 0.1 % (0.0-0.2); EOSINOPHIL % 0.1 % (0.0-5.0); LYMPHOCYTES % 5.8 % (24.0-44.0); MEAN CORP HGB 28.9 pg (26-34); MONOCYTES # 0.6 10^3/uL (0.3-0.8); MONOCYTES % 3.7 % (5.0-12.0); NEUTROPHIL # 15.6 10^3/uL (1.8-7.7); NEUTROPHILS % 89.7 % (41.0-85.0); PLATELET COUNT 177 10^3/uL (150-400); RED CELL DISTRIBUTION WIDTH 14.5 % (11.5-14.5)
[2020-06-13 07:53] LABS: CALCIUM 8.2 mg/dL (8.4-10.5); CARBON DIOXIDE 20.3 mmol/L (20.0-32)
[2020-06-13] MEDS: ELIQUIS PO SCH (09:00)
[2020-06-13] MEDS: VITAMIN D PO SCH (09:00)
[2020-06-13] MEDS: VITAMIN C PO SCH (09:00)
[2020-06-13] MEDS: VITAMIN E PO SCH (09:00)
[2020-06-13] MEDS: LOPRESSOR PO SCH (09:00)
[2020-06-13] MEDS: DECADRON IV SCH (09:00)
[2020-06-13] MEDS: ZINC SULFATE PO SCH (09:00)
[2020-06-13] MEDS: COZAAR PO SCH (09:00)
[2020-06-13 09:23] VITALS: BP 118/90
[2020-06-13] MEDS: COMBIVENT RESPIMAT 20-100 MCG IH SCH (10:50)
[2020-06-13 12:02] VITALS: BP 103/54
--- NOTE | 2020-06-13 12:16 | DIREP ---
PROCEDURE:CHEST 2 VIEWS COMPARISON:[facility], CR, XRAY CHEST 2 VWS, 06/07/2020, 06:[address] [facility], CR, XRAY CHEST 2 VWS, 06/03/2020, 03:25 PM. INDICATIONS:SOB, cough, COVID penumonia FINDINGS: LUNGS/PLEURA:Worsened lung aeration. Bilateral ground-glass infiltrates are not significantly changed accounting for differences in lung aeration. No effusion or pneumothorax. VASCULATURE:Normal. Unremarkable pulmonary vasculature. CARDIAC:Normal. No cardiac silhouette abnormality or cardiomegaly. MEDIASTINUM:Normal. No visible mass or adenopathy. BONES:Partially visualized right humeral head prosthesis. Thoracic spondylosis and degenerative changes in the left shoulder. OTHER:Negative. CONCLUSION: Worsened lung aeration. Bilateral ground-glass infiltrates are not significantly changed accounting for differences in lung aeration. Dictated by: Lennox Tierney MD. On 06/13/2020 at 12:13 PM
[2020-06-13] MEDS ORDERED: IPRA4AER IH (12:59)
[2020-06-13] MEDS ORDERED: MELA3TAB31 PO (12:59)
[2020-06-13] MEDS ORDERED: ZINC220C7 PO (12:59)
[2020-06-13] MEDS ORDERED: CHOL10003 PO (12:59)
[2020-06-13] MEDS ORDERED: ATOR40TA PO (12:59)
[2020-06-13] MEDS ORDERED: ASCO500T5 PO (12:59)
[2020-06-13] MEDS ORDERED: VITA-48 PO (12:59)
--- NOTE | 2020-06-13 13:49 | PRM.DC ---
DISCHARGE SUMMARY DISCHARGE SUMMARY DATE OF ADMISSION: June 08, 2020 DATE OF DISCHARGE: June 13, 2020 ADMITTING DIAGNOSES: Coronavirus infection with pneumonia, acute hypoxic respiratory failure, chronic atrial fibrillation with rapid ventricular response, obstructive sleep apnea, acute coronary syndrome with CHF exacerbation/pulmonary edema DISCHARGE DIAGNOSES: Coronavirus 19 infection with pneumonia, obstructive sleep apnea, coronary artery disease with history of CHF and chronic atrial fibrillation DISCHARGE DISPOSITION: Patient is discharged to home DISCHARGE CONDITION: Improved HOSPITAL COURSE: 69-year-old gentleman who was transferred over from an outlying ER for worsening breathing. He was diagnosed with coronavirus infection approximately 6 days before coming in. His breathing was worsened and was brought in by EMS and his chest x-ray showed multifocal pneumonia. He also had a lot of pulmonary edema and when a Craven was placed he dumped out more than 4 L of fluid. He does have underlying chronic atrial fibrillation and his heart rates were ranging anywhere between 90-130 when he came in. His troponin was also elevated as well. He was started on Covid treatment in the hospital when he arrived and I placed him on cardiac medications. He initially needed 100% nonrebreather at first but after 5 days of treatment along with plasma transfusion his clinical condition did start improving. His troponin normalized on his cardiac medications and his echo did show that he was in A. fib and his EF was about 45%. Repeat chest x-ray does show clearing of his upper lobes and he is clinically improving with his O2 2 requirement down to just 3 L of oxygen currently. He has been using his CPAP and that has been helping him sleep at night. His vital signs are stable his heart and his heart rate is improved. DIET: Resume home diet ACTIVITY: As tolerated OTHER: We are setting him up with home O2 and physical therapy; he is to use his incentive spirometer and flutter valve frequently at home MEDICATIONS: 1. Resume home medications 2. He is up placed on certain vitamins and minerals 3. Combivent inhaler 1 inhalation 3 times a day FOLLOW-UP: Follow-up with his PCP in 2 weeks. CHILO RIVERA MD Jun 13, 2020 13:49
--- NOTE | 2020-06-13 14:56 | NUR ---
PATIENT BEING DISCHARGED HOME AT THIS TIME IN STABLE CONDITION. PATIENT DENIES ANY ADDITIONAL NEEDS AT THIS TIME. PATIENT WAS ASSISTED BY STAFF NURSE TO PRIVATE VEHICLE. CARE WAS RELINQUISHED AT THIS TIME.
[2020-06-13 14:57] VITALS: BP 103/54
== END 2020-06-13 14:41 | disposition home health service (06) | DRG 177 ==
LOC: MS 23:33
PROVIDERS: ADMIT Pediatrics; ATTEND Pediatrics
PROC: XW13325 Transfusion of Convalescent Plasma (Nonautologous) into Peripheral Vein, Percutaneous Approach, New Technology Group 5 (ICD-10-PCS; principal; 2020-06-08)
PROC: XW033E5 Introduction of Remdesivir Anti-infective into Peripheral Vein, Percutaneous Approach, New Technology Group 5 (ICD-10-PCS; 2020-06-08)
DX: U07.1 COVID-19 (principal); J96.01 Acute respiratory failure with hypoxia; J12.89 Other viral pneumonia; I48.20 Chronic atrial fibrillation, unspecified; I24.9 Acute ischemic heart disease, unspecified; I50.9 Heart failure, unspecified; I11.0 Hypertensive heart disease with heart failure; G47.33 Obstructive sleep apnea (adult) (pediatric); I25.10 Atherosclerotic heart disease of native coronary artery without angina pectoris; Z96.643 Presence of artificial hip joint, bilateral; E04.1 Nontoxic single thyroid nodule; M19.90 Unspecified osteoarthritis, unspecified site
CPT/HCPCS: 36415; 71046; 71260; 80053; 82550; 82553; 82728; 83615; 84484; 85025; 85379; 85651; 86140; 86900; 93005; 93306; G0378; J0456; J0696; J1100; J7050; P9017; Q9965